=== PATIENT | male | born 1990 | race Caucasian/White ===

== ENCOUNTER 2018-04-25 15:05 | Emergency (ER) | payer BC ==
[~2018-04-25] VITALS: Ht 188 cm; Wt 117.9 kg
[2018-04-25 15:19] VITALS: Ht 188 cm; Wt 117.9 kg
[2018-04-25 18:44] VITALS: BP 134/83
== END 2018-04-25 18:44 | disposition home or self-care (01) ==
LOC: ED 15:05
DX: S86.812A Strain of other muscle(s) and tendon(s) at lower leg level, left leg, initial encounter (principal); X50.1XXA Overexertion from prolonged static or awkward postures, initial encounter; Y93.41 Activity, dancing; Y92.89 Other specified places as the place of occurrence of the external cause; Y99.8 Other external cause status
CPT/HCPCS: Q0092